=== PATIENT | female | born 1950 | race Two or more races ===

== ENCOUNTER 2018-12-27 11:59 | Inpatient (IN) | payer OTHER ==
[~2018-12-27] VITALS: Ht 162.6 cm; Wt 81.6 kg
[2019-01-07] MEDS ORDERED: SYNTHROID100 MCG PO (11:32)
[2019-01-07] MEDS ORDERED: CRESTOR10 MG PO (11:32)
[2019-01-07] MEDS ORDERED: VITAMIN B122500 MCG PO (11:33)
== END 2019-01-14 16:58 | disposition home or self-care (01) | DRG 331 ==
LOC: SURH 01-07 09:00 → O/R 01-11 07:16 → SURH 01-11 07:16 → SURG 01-11 13:53 → SURH 01-11 17:10
PROVIDERS: ADMIT Colon & Rectal Surgery
PROC: 07TB4ZZ Resection of Mesenteric Lymphatic, Percutaneous Endoscopic Approach (ICD-10-PCS; 2019-01-11)
PROC: 0DTF4ZZ Resection of Right Large Intestine, Percutaneous Endoscopic Approach (ICD-10-PCS; principal; 2019-01-11 18:00)
DX: D12.0 Benign neoplasm of cecum (principal)

== ENCOUNTER 2020-05-11 06:50 | Day surgery (SDC) | payer OTHER ==
[~2020-05-11 06:50] MED LIST: CRESTOR10 MG PO; SYNTHROID100 MCG PO; VITAMIN B122500 MCG PO
== END 2020-05-11 10:25 | disposition home or self-care (01) ==
LOC: AMB-ENDOS 06:50
PROVIDERS: ATTEND Colon & Rectal Surgery
DX: K62.89 Other specified diseases of anus and rectum (principal); K64.0 First degree hemorrhoids; Z20.828 Contact with and (suspected) exposure to other viral communicable diseases

== ENCOUNTER → 2020-10-31 | Day surgery (SDC) | payer OTHER ==
[~2020-10-31] MED LIST changes: +ARTHRITIS PAIN650 M1 PO; +BACLOFEN10 MG PO; +BONIVA150 MG PO; +COLACE100 MG PO; +MAXIMUM D3325 MCG PO; +NEURONTIN600 M1 PO; +PERCOCET 5-3251 EACH PO; +ZOCOR20 MG PO
== END | disposition home or self-care (01) ==
LOC: ADM 10-25 07:30 → CIR.AMB 06:56
PROVIDERS: ATTEND Surgery
DX: K43.0 Incisional hernia with obstruction, without gangrene (principal); Z20.822 Contact with and (suspected) exposure to COVID-19